=== PATIENT | female | born 1990 | race Caucasian/White ===

== ENCOUNTER 2019-11-29 16:42 | Emergency (ER) | payer MEDICARE, MEDICAID, SELFPAY ==
[2019-11-29 16:44] VITALS: BP 134/90; PULSE 95; RESP 20; TEMP 36.7; O2SAT 100
--- NOTE | 2019-11-29 17:20 | ED.GENADULT ---
HPI - General Adult General Chief complaint: Urogenital-Female Stated complaint: ear pain/pos UTI Time Seen by Provider: 11/29/19 17:20 Source: patient, family and RN notes reviewed History of Present Illness HPI narrative: Patient is a 29-year-old female presents the urgent care with her sister. Patient does have cerebral palsy and difficulty answering questions. Sister states that she does have chronic history of urinary tract infections and her last one was approximately 2 months ago. Sister states that as of 1 week ago she was having odorous urine, itchiness and complaints of burning with decreased appetite. Denies any complaints of abdominal pain, vomiting, back pain. States that she is also been complaining of bilateral ear pain for approximately 3 days. Denies of any known fevers. No other acute complaints. No acute distress noted. Caregiver aware of the plan of care. Related Data Home Medications Medication Instructions Recorded Confirmed norethindrone-e.estradiol-iron 1 tablet PO DAILY 08/04/19 08/04/19 [10/03 (28)] rosuvastatin mg 11/29/19 Allergies Allergy/AdvReac Type Severity Reaction Status Date / Time No Known Allergies Allergy Unknown Verified 08/04/19 16:21 Review of Systems Review of Systems: Narrative: ROS completed with the sister CONSTITUTIONAL: Denies fever, chills, or sweats. EYES: Denies visual changes, redness, or discharge. ENT: Reports of bilateral ear pain CARDIOVASCULAR: Denies chest pain, palpitations, or edema. RESPIRATORY: Denies cough or dyspnea. GASTROINTESTINAL: Denies abdominal pain, nausea, vomiting, or diarrhea. Reports of decreased appetite GENITOURINARY: Reports a complaint of dysuria, foul odor and itchiness SKIN: Denies rash or itching. MUSCULOSKELETAL: Denies back pain, joint pain, or myalgia. NEUROLOGIC: Denies headache, numbness, or weakness. All other systems reviewed are negative, except as documented in HPI. [facility] Past Medical History Medical History (Updated 11/29/19 @ 17:37 by TALI Shay) Back spasm Has pump for spasms Cerebral palsy Hiatal hernia Seizures Urinary tract infection Surgical History Surgical History (Updated 08/04/19 @ 16:11 by TALI Donald) History of cholecystectomy Comments At the time of my signature, I reviewed and agree with the nursing past medical, surgical, social, and family history. There is no relevant family history pertinent to the patient complaint. Exam Narrative: Exam Narrative: GENERAL: This is a well-nourished, well-developed patient, in no apparent distress. HEAD: normocephalic, atraumatic. EYES: PERRL. Sclera clear/white. Vision is grossly intact. EARS: External ears normal, auditory canals clear and without drainage, mild fluid noted behind left TM, TMs normal without perforation. Hearing grossly intact. NOSE: External nose normal with no obvious nasal discharge, nares without redness, no rhinorrhea. THROAT: Mucous membranes moist, posterior pharynx clear. Moderate postnasal drainage NECK: Neck supple CARDIOVASCULAR: Regular rate and rhythm without murmurs, gallops, or rubs. RESPIRATORY: Clear to auscultation. Breath sounds equal bilaterally. No wheezes, rales, or rhonchi. GASTROINTESTINAL: Abdomen soft, non-tender, nondistended. Bowel sounds are active. SKIN: warm, intact with no suspicious lesions or rash, good texture and turgor. NEURO: awake, alert, and oriented to person, place and time. There were no obvious focal neurologic abnormalities. EXTREMITIES: No clubbing, cyanosis, or edema. BACK: Negative bilateral CVA tenderness Course Vital Signs Vital signs: Vital Signs Temperature 98.0 F 11/29/19 16:44 Pulse Rate 95 11/29/19 16:44 Respiratory Rate 20 11/29/19 16:44 Blood Pressure 134/90 11/29/19 16:44 Pulse Oximetry 100 11/29/19 16:44 Temperature 98.0 F 11/29/19 16:44 Pulse Rate 95 11/29/19 16:44 Respiratory Rate 20 11/29/19 16:44 Blood
== END 2019-11-29 17:39 | disposition home or self-care (01) ==
PROVIDERS: Emergency Provider Nurse Practitioner Family
DX: N39.0 Urinary tract infection, site not specified (principal); J02.9 Acute pharyngitis, unspecified; G80.9 Cerebral palsy, unspecified
CPT/HCPCS: 81003; 87086; 99213; G0463

== ENCOUNTER 2020-07-02 14:18 | Emergency (ER) | payer MEDICARE, MEDICAID, SELFPAY ==
--- NOTE | 2020-07-02 14:21 | ED.URI ---
HPI - URI/Sore Throat General Chief Complaint: Ear Stated Complaint: ear pain/sore throat Time Seen by Provider: 07/02/20 14:22 Source: patient, family and RN notes reviewed History of Present Illness HPI Narrative: Patient is a 29-year-old female who presents the urgent care with her mother. Patient does have history of cerebral palsy and her mother is her caregiver. Mother states that she has been complaining of bilateral ear pain for 2 days. States that at her last doctor's appointment today told her mother to use Debrox in the ears due to cerumen impaction. Mother states it was worse to the right ear at that time. States that she has been complaining of a sore throat intermittently for the last 2 days but has been eating and drinking normally without any known fevers. No complaints of nausea, vomiting or abdominal pain. Denies of any known exposure to strep or Covid. No other acute complaints. No acute distress noted. Patient and mother aware of the plan of care. Some parts of this dictation were generated by voice recognition software and may contain typographical and/or grammatical inaccuracies. Related Data Home Medications Medication Instructions Recorded Confirmed norethindrone-e.estradiol-iron 1 tablet PO DAILY 08/04/19 08/04/19 [10/03 (28)] rosuvastatin mg 11/29/19 Allergies Allergy/AdvReac Type Severity Reaction Status Date / Time No Known Allergies Allergy Unknown Verified 07/02/20 14:25 Review of Systems Review of Systems: Narrative: CONSTITUTIONAL: Denies fever, chills, or sweats. EYES: Denies visual changes, redness, or discharge. ENT: Reports of sore throat and bilateral otalgia CARDIOVASCULAR: Denies chest pain, palpitations, or edema. RESPIRATORY: Denies cough or dyspnea. GASTROINTESTINAL: Denies abdominal pain, nausea, vomiting, or diarrhea. GENITOURINARY: Denies dysuria or hematuria. SKIN: Denies rash or itching. MUSCULOSKELETAL: Denies back pain, joint pain, or myalgia. NEUROLOGIC: Denies headache, numbness, or weakness. All other systems reviewed are negative, except as documented in HPI. [facility] Past Medical History Medical History (Updated 07/02/20 @ 14:36 by TALI Shay) Back spasm Has pump for spasms Cerebral palsy Hiatal hernia Seizures Urinary tract infection Surgical History Surgical History (Updated 08/04/19 @ 16:11 by TALI Donald) History of cholecystectomy Comments At the time of my signature, I reviewed and agree with the nursing past medical, surgical, social, and family history. There is no relevant family history pertinent to the patient complaint. Exam Narrative: Exam Narrative: GENERAL: This is a well-nourished, well-developed patient, in no apparent distress. HEAD: normocephalic, atraumatic. EYES: PERRL. Sclera clear/white. Vision is grossly intact. EARS: External ears normal, auditory canals clear and without drainage, mild cerumen noted to left ear canal without otitis, bilateral TMs normal without perforation. Hearing grossly intact. NOSE: External nose normal with no obvious nasal discharge, nares without redness, no rhinorrhea. THROAT: Mucous membranes moist, moderate postnasal drainage without erythema, edema or tonsillar edema or exudate NECK: Neck supple, non-tender without lymphadenopathy CARDIOVASCULAR: Regular rate and rhythm without murmurs, gallops, or rubs. RESPIRATORY: Clear to auscultation. Breath sounds equal bilaterally. No wheezes, rales, or rhonchi. GASTROINTESTINAL: Abdomen soft, non-tender, nondistended. Bowel sounds are active. No hepato-splenomegaly, or palpable masses. No guarding. SKIN: warm, intact with no suspicious lesions or rash, good texture and turgor. NEURO: awake, alert, and oriented to person, place and time. There were no obvious focal neurologic abnormalities. EXTREMITIES: No clubbing, cyanosis, or edema. Course Vital Signs Vital signs: Vital Signs Temperature 97.4 F L 07/02/20 14:23
[2020-07-02 14:23] VITALS: BP 144/99; PULSE 73; RESP 20; TEMP 36.3; O2SAT 100
== END 2020-07-02 14:39 | disposition home or self-care (01) ==
PROVIDERS: Emergency Provider Nurse Practitioner Family
DX: H92.03 Otalgia, bilateral (principal); J02.9 Acute pharyngitis, unspecified; G80.9 Cerebral palsy, unspecified
CPT/HCPCS: 99211; G0463

== ENCOUNTER 2020-08-08 11:59 | Emergency (ER) | payer MEDICARE, MEDICAID, SELFPAY ==
[2020-08-08 12:11] VITALS: BP 127/79; PULSE 90; RESP 20; TEMP 36.3; O2SAT 100
--- NOTE | 2020-08-08 12:25 | ED.SKABFB ---
HPI - Skin/Abscess/Foreign Bdy General Chief complaint: Urogenital-Female Stated complaint: FREQUENT/BURNING URINATION Time Seen by Provider: 08/08/20 12:25 Source: patient and family Mode of arrival: ambulatory Limitations: no limitations History of Present Illness HPI narrative: Keri Hernandez is a 29 yo female with a PMH of Down's syndrome, high cholewsterol, who is brought to express care by sister for complaints of frequency. Has been treated in the past for dysuria, last time in July 2019. Related Data Home Medications Medication Instructions Recorded Confirmed norethindrone-e.estradiol-iron 1 tablet PO DAILY 08/04/19 08/08/20 [10/03 (28)] rosuvastatin 10 mg PO DAILY 11/29/19 08/08/20 Allergies Allergy/AdvReac Type Severity Reaction Status Date / Time No Known Allergies Allergy Unknown Verified 08/08/20 12:09 Review of Systems Review of Systems: Narrative: CONSTITUTIONAL: Denies fever, chills, sweats. EYES: Denies visual changes, redness, discharge. ENT: Denies rhinorrhea, congestion, sore throat, otalgia. CARDIOVASCULAR: Denies chest pain, palpitations, edema. RESPIRATORY: Denies dyspnea, wheezing, cough GASTROINTESTINAL: Denies abdominal pain, nausea, vomiting, diarrhea. GENITOURINARY:has dysuria, hematuria, no abnormal discharge SKIN: Denies rash or itching. NEUROLOGIC: Denies numbness, or focal weakness. PSYCHIATRIC: Denies anxiety or depression. [facility] Past Medical History Medical History Back spasm Has pump for spasms Cerebral palsy Hiatal hernia Seizures Urinary tract infection Surgical History Surgical History History of cholecystectomy Social History Social History Smoking status: Never smoker Alcohol intake: never Comments At time of signature, I agree with nursing past medical, surgical, social and family history. There is no relevant family history pertinent to the presenting complaint. Exam Narrative: Exam Narrative: GENERAL: This is a well-nourished, well-developed patient, in mild distress. Patient is developmentally delayed HEAD: normocephalic, atraumatic. EYES: Sclera clear/white. Vision is grossly intact. EARS: External ears normal,. Hearing grossly intact. NOSE: External nose normal without nasal discharge, nares without redness, no rhinorrhea. THROAT: Mucous membranes moist, NECK: Neck supple, CARDIOVASCULAR: Regular rate and rhythm without murmurs, gallops, or rubs. RESPIRATORY: Clear to auscultation. Breath sounds equal bilaterally. No wheezes, rales, or rhonchi. GASTROINTESTINAL: Abdomen soft, non-tender, SKIN: warm, intact with no suspicious lesions or rash, good texture and turgor. NEURO: awake, alert, and oriented to person, place and time. There were no obvious focal neurologic abnormalities. Steady gait EXTREMITIES: Normal range of motion. BACK: Nontender without deformity Course Course Emergency Course: Patient was brought to [facility] care for dysuria with no burning-has been treated for the UA dip showed 1+ leukocytes 2+ blood-start keflex Sent for culture Sister states that she has fishy smell in vaginal area when giving bath- and knows she is not sexually active, but skin is red Follow-up with primary care physician Vital Signs Vital signs: Vital Signs Temperature 97.3 F L 08/08/20 12:11 Pulse Rate 90 08/08/20 12:11 Respiratory Rate 20 08/08/20 12:11 Blood Pressure 127/79 08/08/20 12:11 Pulse Oximetry 100 08/08/20 12:11 Temperature 97.3 F L 08/08/20 12:11 Pulse Rate 90 08/08/20 12:11 Respiratory Rate 20 08/08/20 12:11 Blood Pressure 127/79 08/08/20 12:11 Pulse Oximetry 100 08/08/20 12:11 MDM - Skin/Abscess/Foreign Bdy Differential Diagnosis Differential diagnosis: Likely other (UTI versus dysuria versus dehydration
== END 2020-08-08 12:43 | disposition home or self-care (01) ==
PROVIDERS: Emergency Provider Nurse Practitioner
DX: R30.0 Dysuria (principal); Z87.440 Personal history of urinary (tract) infections; G80.9 Cerebral palsy, unspecified; Q90.9 Down syndrome, unspecified; E78.00 Pure hypercholesterolemia, unspecified
CPT/HCPCS: 81003; 87086; 87088; 99213; G0463

== ENCOUNTER 2020-09-01 16:30 | Emergency (ER) | payer MEDICARE, MEDICAID, SELFPAY ==
[2020-09-01 16:45] VITALS: BP 133/78; PULSE 105; RESP 20; TEMP 36.7; O2SAT 97
--- NOTE | 2020-09-01 17:25 | ED.GENADULT ---
HPI - General Adult General Chief complaint: Ear Stated complaint: ears Time Seen by Provider: 09/01/20 17:24 Source: patient, family (sister) and RN notes reviewed Mode of arrival: wheelchair Limitations: other (Mental delayed) History of Present Illness HPI narrative: 29-year-old Cerebral Palsy female presents with urinary complaints for the past 4 days. Keri and her sister (sister says Keri has a tube in stomach for urine) reports a foul odor and burning with urination. Dysuria consist of burning, frequency, and small amount. No treatment. History of UTIs. Denies fever or chills. No significant pelvic pain. No vaginal discharge.? No concerns for STDs. Exacerbating factors urinating.? Denies hematuria or vaginal bleeding. Denies being , LMP unknown due to control.? No flank pain. Denies nausea, vomiting, and abdominal pain. Tolerating liquids well. The patient and sister reports they have not been diagnosed with COVID-19. The patient and sister reports they are not waiting for the results of a COVID-19 lab test. The patient and sister reports they do not have chills, weakness, fatigue, myalgia, or facial swelling. The patient and sister reports they do not have a new or worsening cough or shortness of breath. Denies chest pain. The patient's ther reports they do not have any rhinorrhea, congestion, loss of taste, sore throat, and diarrhea. Denies recent traveling. Denies concerns for COVID-19 or exposures been home with limited outdoor exposure except for essential household needs and return home. At this time, patient is not suspected of having COVID-19. Complaints of sore throat and bilateral otalgia for the past 4 days. No treatment. No high fevers, drooling, neck or throat swelling. Pain is bilateral. Hurts to swallow. Exacerbation factors consist of eating and drinking. Denies ear drainage, itching, hearing loss, or trauma. No rhinorrhea or nasal congestion. No voice change. Denies chills, dyspnea, difficulty swallowing, jaw pain, dental pain, facial pain, foreign body sensation, and rash. Some parts of this dictation were generated by voice recognition software and may contain typographical and/or grammatical inaccuracies. Related Data Home Medications Medication Instructions Recorded Confirmed norethindrone-e.estradiol-iron 1 tablet PO DAILY 11/21/19 11/25/20 [Junel FE 10/03 (28)] rosuvastatin 10 mg PO DAILY 11/29/19 08/08/20 baclofen mg 09/01/20 Allergies Allergy/AdvReac Type Severity Reaction Status Date / Time No Known Allergies Allergy Unknown Verified 09/01/20 17:45 Review of Systems Review of Systems: Narrative: CONSTITUTIONAL: Denies fever, chills, sweats. EYES: Denies visual changes, redness, discharge. ENT: Denies rhinorrhea, congestion. Complains of sore throat, bilateral otalgia. CARDIOVASCULAR: Denies chest pain, palpitations, edema. RESPIRATORY: Denies dyspnea, wheezing, cough. GASTROINTESTINAL: Denies abdominal pain, nausea, vomiting, diarrhea. GENITOURINARY: Complains of dysuria (burning, small amount, and urgency). Denies hematuria, abnormal discharge. SKIN: Denies rash or itching. MUSCULOSKELETAL: Denies acute back pain, joint pain, or myalgia. NEUROLOGIC: Denies numbness or focal weakness. PSYCHIATRIC: Denies anxiety or depression. All systems reviewed & are unremarkable except as noted in HPI and below. [facility] Past Medical History Medical History (Updated 09/02/20 @ 17:40 by TALI Waters) Adopted family medical history unknown Back spasm Has Baclofen pump for spasms Cerebral palsy Hiatal hernia Hypercholesteremia Seizures Urinary tract infection Surgical History Surgical History (Updated 09/04/20 @ 19:49 by TALI Waters) History of cholecystectomy History of foot surgery heel cords History of myringoplasty 2000 History of tympanostomy Removed in 2000 Family History Family History (Updated 09/02/20 @ 1
== END 2020-09-01 17:53 | disposition home or self-care (01) ==
PROVIDERS: Emergency Provider Nurse Practitioner Family
DX: J02.9 Acute pharyngitis, unspecified (principal); R30.0 Dysuria; G80.9 Cerebral palsy, unspecified; E78.00 Pure hypercholesterolemia, unspecified
CPT/HCPCS: 81003; 99213; G0463

== ENCOUNTER 2021-01-02 13:35 | Emergency (ER) | payer MEDICARE, MEDICAID, SELFPAY ==
[2021-01-02 13:53] VITALS: BP 99/69; PULSE 63; RESP 16; TEMP 35.9; O2SAT 97
--- NOTE | 2021-01-02 13:54 | ED.FEMALEGU ---
HPI - Female Genitourinary General Chief complaint: Urogenital-Female Stated complaint: BURNING URINATION History of Present Illness HPI Narrative: Patient is a 30-year-old female who presents with sister. Patient reports burning with urination for 7-8 days. Patient reports a history of UTIs in the past. Patient has a complex medical history that includes cerebral palsy, seizures and UTIs. She denies fever, chills, abdominal pain or other complaints at this time. She has taken no [id number] medications for relief. Related Data Home Medications Medication Instructions Recorded Confirmed norethindrone-e.estradiol-iron 1 tablet PO DAILY 08/04/19 08/08/20 [10/03 (28)] rosuvastatin 10 mg PO DAILY 11/29/19 08/08/20 baclofen mg 09/01/20 Allergies Allergy/AdvReac Type Severity Reaction Status Date / Time No Known Allergies Allergy Unknown Verified 09/01/20 17:45 Review of Systems Review of Systems: Narrative: CONSTITUTIONAL: Denies fever, chills, or sweats. EYES: Denies visual changes, redness, or discharge. ENT: Denies rhinorrhea, congestion, sore throat, or otalgia. CARDIOVASCULAR: Denies chest pain, palpitations, or edema. RESPIRATORY: Denies cough or dyspnea. GASTROINTESTINAL: Denies abdominal pain, nausea, vomiting, or diarrhea. GENITOURINARY: Reports dysuria SKIN: Denies rash or itching. MUSCULOSKELETAL: Denies back pain, joint pain, or myalgia. NEUROLOGIC: Denies headache, numbness, dizziness, or weakness. PSYCHIATRIC: Denies anxiety or depression. [facility] Past Medical History Medical History Adopted family medical history unknown Back spasm Has Baclofen pump for spasms Cerebral palsy Hiatal hernia Hypercholesteremia Seizures Urinary tract infection Surgical History Surgical History History of cholecystectomy History of foot surgery heel cords History of myringoplasty 2000 History of tympanostomy Removed in 2000 Family History Family History Mother Unknown family medical history Father Unknown family medical history Social History Social History Smoking status: Never smoker Tobacco type: cigarettes Second hand tobacco smoke exposure: No Alcohol intake: never Substance use: never Additional living arrangements comments: adopted family Additional occupation/education comments: disable Gender identity (if verbalized by the patient): Female Comments At the time of signature, I have reviewed and agree with nursing past medical, surgical, social, and family history unless otherwise noted. Please see nursing chart for further information. There is no relevant family history pertinent to the presenting complaint. Exam Narrative: Exam Narrative: GENERAL: Well-appearing, well-nourished, and in no acute distress. HEAD: Normocephalic, atraumatic. EYES: No redness or drainage. ENT: Mucous membranes pink and moist. CHEST: No respiratory distress. HEART: Regular rate and rhythm. GI: Soft, nontender without rebound, or guarding. No distention. EXTREMITIES: Normal range of motion. SKIN: Warm, dry, no rash. NEURO: No focal deficits. Alert and oriented x3. Gait steady. PSYCH: Normal affect. No signs of depression or anxiety. MDM - Female Genitourinary MDM Narrative Medical decision making narrative: Patient's UA was positive for ascites and blood. With patient's history, patient to be started on Macrobid at this time. Patient is stable for discharge home with outpatient follow-up as needed. Patient sister aware if she develops fever, chills, abdominal pain or other symptoms, she should seek further evaluation in the emergency department. Differential Diagnosis Differential diagnosis: Likely urinary tract infection, bacterial vagino
== END 2021-01-02 14:28 | disposition home or self-care (01) ==
PROVIDERS: Emergency Provider Nurse Practitioner
DX: N39.0 Urinary tract infection, site not specified (principal); G80.9 Cerebral palsy, unspecified; E78.00 Pure hypercholesterolemia, unspecified
CPT/HCPCS: 81003; 87086; 99213; G0463